=== PATIENT | female | born 1970 | race Caucasian/White ===

== ENCOUNTER 2022-01-03 06:06 | Day surgery (SDC) | payer OTHER ==
[~2022-01-03 06:06] MED LIST: Dextrose 5%-0.45% NaCl 1,000 ML IV SCH; Sodium Chloride 0.9% 10 ML Syringe FLUSH PRN
[2022-01-03] MEDS ORDERED: fentaNYL 100 MCG/2 ML SDV IV ONE ×5 (06:07→07:49)
[2022-01-03] MEDS ORDERED: Midazolam 1 MG/ML 2 ML SDV IV ONE ×7 (06:07→07:43)
[2022-01-03] MEDS ORDERED: fentaNYL 100 MCG/2 ML SDV ONE (06:35)
[2022-01-03] MEDS ORDERED: Midazolam 1 MG/ML 2 ML SDV ONE (06:35)
[2022-01-03] MEDS ORDERED: Sodium Chloride 0.9% 10 ML Syringe FLUSH SCH (09:00)
== END 2022-01-03 09:50 | disposition home or self-care (01) ==
LOC: DL.ENDO 06:06
PROVIDERS: ATTEND Internal Medicine Gastroenterology
DX: Z12.11 Encounter for screening for malignant neoplasm of colon (principal); F32.A Depression, unspecified; Z98.890 Other specified postprocedural states
CPT/HCPCS: J2250; J3010; J7042